=== PATIENT | female | born 1970 | race Caucasian/White ===

== ENCOUNTER 2017-06-18 05:57 | Observation (INO) | payer OTHER ==
--- NOTE | 2017-05-31 15:49 | GHP ---
[f rep st] PREOP HISTORY AND PHYSICAL DATE OF ADMISSION: 06/18/2017 DATE OF SURGERY: 06/18/2017 at 7:15 a.m. SURGERY TO BE PERFORMED: Total laparoscopic hysterectomy, bilateral salpingectomy. PREOPERATIVE DIAGNOSIS: Menometrorrhagia and symptomatic uterine fibroids. HISTORY OF PRESENT ILLNESS: The patient is a 47-year-old 3 para 2-0-1-2, who has a longstan ding history of very heavy and irregular menstrual cycles. She was diagnosed with a prolactinoma in her early 40s and was treated medically with cabergoline and followed by an accounts receivable executive. Her c ycles were very irregular with the prolactinoma but that has gradually improved. The regularity has improved but the heaviness has worsened over the past several years. Currently she has very heavy cycles, using 2 super plus tampons and a pad at a time for over 3 days, needing to change approximat leonel every hour, and bleeding in between cycles. This cycles her period lasted a total of 13 days. She plans her life around her period. It is effecting all aspects of her life and she is ready for definitive management. She has felt very fatigued and run down, and was diagnosed with anemia, decr eased iron, decreased ferritin. She did have IV iron infusions and felt better but then as soon as she had her period she began to feel run down again. She also has a constant low back pain that wor sens dramatically with her periods. We have been following her uterus with pelvic ultrasounds over the years and she has known uterine fibroids that have now increased in size. Most recent ultrasoun d, April 16, 2017, she had a total uterine volume of 223 mL. Her largest fibroid is in the posterior aspect, which is 8.0 x 6.6 x 7.88 cm. Her larger posterior fibroid abuts the endometrium, felt to be pushing on the endometrial canal in a submucosal orientation, likely causing her irregular heavin g bleeding and the bulk of the uterus is causing her bulk symptoms and her low back pain. She had a subserosal fibroid that is 2 cm and another intramural fibroid that is also approximately 2 cm. He r ovaries are normal, except she had a simple left ovarian cyst. We discussed treatment options inc luding medical management with hormonal control of her periods versus Lupron versus uterine artery e mbolization or alternative methods and surgery. Patient is now ready to have definitive surgery wit h adam hysterectomy. She has had vaginal deliveries and has good room in descensus, so I feel she is a good candidate for a total laparoscopic hysterectomy. The patient was counseled on the risks and b enefits and she desires to keep her ovaries but we will do a bilateral salpingectomy for cancer prev ention and she is in agreement with this. PAST OBSTETRICAL HISTORY: In 1993, she had a spontaneous . In 2001, she had a viable male, vaginal delivery, 7 pounds 6 ounces, without complication. In 2003, she had a viable female, 7 jeannine nds 8 ounces, vaginal delivery without complication. She has completed her childbearing. She has b een on various oral contraceptive pills for contraception with various side effects and they have no t helped her periods in the recent past. PAST MEDICAL HISTORY: Significant for a history of prolactinoma treated medically and dysautonomia or POTS syndrome. She was diagnosed at [facility] and is followed and treated mostly by edison ruvalcaba. PAST SURGICAL HISTORY: In 1995, she had an umbilical hernia repair and an inguinal hernia repair at the same time. Those are her only surgeries. ALLERGIES: She is allergic to penicillin, it gives her a rash, a childhood reaction. GYNECOLOGICAL HISTORY: She had normal menstrual triad, menarche at age 11. Length of cycles is gen erally monthly. They are heavy and lasting anywhere from 5-13 days. She has had no history of abno rmal Paps. Her most recent Pap was in May of 2016, and it was negative. She has had a negative HPV in 2014. SOCIAL HISTORY: She is . She lives by her and her son and her daughter. 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 She denies tobacco, alcohol, or drug use. Does not have regula r exercise, mostly because of extreme fatigue. FAMILY HISTORY: Significant for a father and a brother who passed from heart disease. Grandmother had breast cancer. Grandfather had lymphoma. Another grandfather had colon cancer. Her father als o had diabetes. REVIEW OF SYSTEMS: Only as above, mostly fatigued and menometrorrhagia. SUBJECTIVE: VITAL SIGNS: Today, blood pressure is 102/62. Weight is 147. GENERAL: She is a well -developed, well-nourished white female, in no acute distress. LUNGS: Clear to auscultation bilate rally. HEART: Regular rate and rhythm. No murmurs. ABDOMEN: Soft, nontender, nondistended. Nor mal bowel sounds. PELVIC: Normal external genitalia. Normal parous cervix. Uterus is bulky, enla rged with palpable fibroid toward the posterior side onto her sacrum but is generally mobile and no other masses are palpated. ASSESSMENT AND PLAN: A 47-year-old 3 para 2-0-1-2 with symptomatic uterine fibroids, menome trorrhagia, and bulk symptoms, for definitive management with a total laparoscopic hysterectomy, ritika ateral salpingectomy. The patient was consented for the procedure today. She understands the risks and benefits. The risks including bleeding, infection, damage to organs in terms of bowel, bladder , nerves, blood vessels, ureters. Risk of needing an open procedure, risk of needing additional pro cedures. She understood these risks and benefits and agreed to consent. /[id number]/MODL
[2017-06-18] MEDS ORDERED: ceFAZolin 2 GM/DEXTROSE 100 ML IV ONE (06:00)
[2017-06-18] MEDS ORDERED: LIDOCAINE 1% 2 ML INJ ID PRN (06:22)
[2017-06-18] MEDS ORDERED: LR 1,000 ML IV ONE (06:22)
[2017-06-18] MEDS ORDERED: fentaNYL 100 MCG/2 ML INJ ONE (07:11)
[2017-06-18] MEDS ORDERED: PROPOFOL/EMULSION 500 MG/50 ML BOTTLE IV ONE ×4 (07:11→10:15)
[2017-06-18] MEDS ORDERED: PROPOFOL 200 MG/20 ML VIAL ONE (07:11)
[2017-06-18] MEDS ORDERED: SCOPOLAMINE HYDROBROMIDE 1 MG/3 DAYS PATCH TD ONE (07:13)
--- NOTE | 2017-06-18 07:14 | PDANEPAE ---
ANE History of Present Illness Patient presents for lap hys-salpingectomy ANE Past Medical History - Cardiovascular History Hx Hypertension: No Hx Arrhythmias: No Hx Chest Pain: No Hx Coronary Artery / Peripheral Vascular Disease: No Hx CHF / Valvular Disease: No Hx Palpitations: Yes Cardiovascular History Comment: benign heart palpitations has been worked up by [facility]. bp tends to run low - Pulmonary History Hx COPD: No Hx Asthma/Reactive Airway Disease: No Hx Recent Upper Respiratory Infection: No Hx Oxygen in Use at Home: No Hx Sleep Apnea: No Sleep Apnea Screening Result - Last Documented: Negative - Neurologic History Hx Cerebrovascular Accident: No Hx Seizures: No Hx Dementia: No Neurologic History Comment: nervous system seems like it's a little bit damaged from lyme disease - Endocrine History Hx Diabetes: No Endocrine History Comment: lyme disease - Renal History Hx Renal Disorders: No - Liver History Hx Hepatic Disorders: No - Neurological & Psychiatric Hx Hx Neurological and Psychiatric Disorders: No - Cancer History Hx Cancer: No - Congenital Disorder History Hx Congenital Disorders: No - GI History Hx Gastrointestinal Disorders: No - Other Health History Other Health History: none - Chronic Pain History Chronic Pain: No - Surgical History Prior Surgeries: hernia surgery 1997 ANE Review of Systems - Exercise capacity METS (RN): 4 METS ANE Patient History - Allergies Allergies/Adverse Reactions: Penicillins Allergy (Unknown, Verified 05/24/17 11:29) Unknown Corticosteroids (Glucocorticoids) Allergy (Verified 05/24/17 11:33) Rash - Home Medications Home medications: home medication list seen and reviewed Home Medications: Herbals/Supplements -Info Only 05/24/17 [Last Taken 06/16/17] - NPO status NPO Status: no food or drink >8 hours NPO Since - Liquids (Date): 06/17/17 NPO Since - Liquids (Time): 18:00 NPO Since - Solids (Date): 06/17/17 NPO Since - Solids (Time): 18:00 - Anes Hx Anes Hx: no prior problems - Smoking Hx Smoking Status: Never smoked - Family Anes Hx Family Hx Anesthesia Complications: none ANE Labs/Vital Signs - Vital Signs Blood Pressure: 108/71 Heart Rate: 82 Respiratory Rate: 16 O2 Sat (%): 98 Height: 168.91 cm Weight: 64.864 kg ANE Physical Exam - Airway Neck exam: FROM Mallampati Score: Class 2 Mouth exam: normal dental/mouth exam - Pulmonary Pulmonary: no respiratory distress - Cardiovascular Cardiovascular: regular rate and rhythym - ASA Status ASA Status: II ANE Anesthesia Plan Anesthesia Plan: general endotracheal anesthesia (rba discussed)
--- NOTE | 2017-06-18 07:32 | PDHPUP ---
History & Physical Update H&P update statement: This history and physical update is based on an assessment of the patient which was completed after admission or registration (within 24 hours), but prior to the surgery/procedure.
[2017-06-18] MEDS ORDERED: ROCURONIUM 50 MG/5 ML VIAL ONE ×3 (07:53)
[2017-06-18] MEDS ORDERED: DEXAMETHASONE 4 MG/ML VIAL ONE (07:54)
[2017-06-18] MEDS ORDERED: METOCLOPRAMIDE 10 MG/2 ML VIAL ONE (07:54)
[2017-06-18] MEDS ORDERED: BUPIVACAINE 0.25% 30 ML SDV ONE (08:12)
[2017-06-18] MEDS ORDERED: HYDROmorphONE/DILAUDID 2 MG/ML INJ ONE ×2 (08:25→10:49)
[2017-06-18] MEDS ORDERED: SUGAMMADEX SODIUM 200 MG/2 ML VIAL IVP ONE (09:43)
[2017-06-18] MEDS ORDERED: LR 500 ML IV PRN (10:48)
[2017-06-18] MEDS ORDERED: HYDROmorphONE/DILAUDID 1 MG/ML SYR IVP PRN (10:48)
[2017-06-18] MEDS ORDERED: NALOXONE HCL 0.4 MG/ML INJ IVP PRN (10:48)
[2017-06-18] MEDS ORDERED: HYDROCODONE/APAP 5/325 TAB PO PRN ×2 (10:48→18:49)
[2017-06-18] MEDS ORDERED: PROMETHAZINE HCL 25 MG/ML INJ IVP PRN (10:48)
[2017-06-18] MEDS ORDERED: ONDANSETRON 4 MG/2 ML VIAL IVP PRN (10:48)
[2017-06-18] MEDS ORDERED: fentaNYL 100 MCG/2 ML INJ IVP PRN (10:48)
[2017-06-18] MEDS ORDERED: OXYCODONE/APAP 5/325 TAB PO PRN (10:48)
[2017-06-18] MEDS ORDERED: KETOROLAC 30 MG/1 ML SDV IVP ONE ×2 (11:13→14:45)
--- NOTE | 2017-06-18 11:18 | POSTOPPROG ---
Post Op Note Date of Operation: 06/18/17 Surgeon: Gabriella Casey Rope Silica Machine Operator: Dr. Margarita Osorio Anesthesiologist: Dr. Trey Cazares Anesthesia: GET(General Endotracheal) Pre-op Diagnosis: menomenorrhagia and uterine fibroids Post-op Diagnosis: same Procedure: TLH B salpingectomy Findings: uterus with large fibroids, ovaries and tubes within normal limits Inf/Abcess present in the surg proc area at time of surgery?: No Depth: Organ Space EBL: 100-500 Total fluids administered: 2500 Specimen(s): uterus with cervix and bilateral fallopian tubes
[2017-06-18] MEDS ORDERED: LR 1,000 ML IV SCH (11:30)
--- NOTE | 2017-06-18 12:27 | POSTANESTH ---
Post Anesthetic Evaluation Cardiovascular Status: Normal, Stable Respiratory Status: Normal, Stable Level of Consciousness/Mental Status: Can Participate in Eval Pain Control: Adequate, Prn Tx Ordered Nausea/Vomiting Control: Adequate, Prn Tx Ordered Complications Possibly Related to Anesthesia: None Noted
--- NOTE | 2017-06-18 12:53 | GOP ---
[f rep st] OPERATIVE REPORT DATE OF OPERATION: 06/18/2017 SURGEON: Gabriella Casey MD WHITE SIDEWALL TIRE BUFFER: Margarita Osorio MD. ANESTHESIA: General anesthesia. ANESTHESIOLOGIST: Trey Bird MD. PREOPERATIVE DIAGNOSIS: Menometrorrhagia and symptomatic uterine fibroids. POSTOPERATIVE DIAGNOSIS: Menometrorrhagia and symptomatic uterine fibroids. PROCEDURE PERFORMED: Total laparoscopic hysterectomy, bilateral salpingectomy. FINDINGS: SPECIMENS: Uterus with cervix and bilateral fallopian tubes. ESTIMATED BLOOD LOSS: For the procedure was 150 cc. INDICATIONS: The patient is a 47-year-old 3, para 2-0-1-2, with a longstanding history of v anam heavy and irregular menstrual cycles. She was originally diagnosed with a prolactinoma in her e ki 40s, was treated medically, and the cycles gradually improved. This improved irregularity but the heaviness worsened over past several years. Currently she has various heavy cycles using 2 supe r tampons plus a pad at a time for over 3 days needing to change approximately every hour and bleedi ng in between cycles. This lasts as long as 13 days. She plans her life around her period, and it is affecting all aspects of her life. She feels very fatigued and run down. She was diagnosed with anemia and decreased iron, given IV iron infusions, felt better, but as soon as her period started felt worse again. She also has constant low back pain that worsens dramatically with her periods. On ultrasound in March she had an enlarged uterus. The largest fibroid is in the posterior aspect me asuring 8 x 6.6 x 7.88 cm, and it abuts the endometrium felt to be pushing on the endometrial canal in a submucosal orientation causing the irregular bleeding. We discussed management options includi ng medical management versus uterine artery embolization versus definitive management with a hystere ctomy, and the patient decided to have definitive management. She understood the risks and benefits . The risks including bleeding, infection, damage to the organs, uterus, tubes, ovaries, bowel, jeremy dder, nerves, blood vessels, ureters, risk of needing an open procedure, risk of needing additional procedures. She understood these risks and benefits, agreed to proceed. DESCRIPTION OF PROCEDURE: Procedure performed patient was taken to the operating room to where she was placed under general anesthesia without difficulty. She was prepped and draped in the dorsal li thotomy position, and a West catheter was placed in her bladder. After a WHO time-out was performe d, an open-sided speculum was placed in the vagina, and the single-tooth tenaculum was used to grasp the anterior lip of the cervix. The uterus sounded to 11 cm. The cervix was progressively dilated with Jeffrey dilators to #7. The MOOSE uterine manipulator was placed through the cervical os and the balloon was inflated. The cervical cap was placed around the cervix and the tenaculum was removed. The uterus was manipulated with that manipulator. Attention was then turned to the abdominal portion of procedure. The patient had previously had an umbilical hernia repair with mesh. So we made our midline incision approximately 2 cm superior to h er umbilicus. After injection of local a 5 mm skin incision was placed through that trocar site. U nder direct visualization an atraumatic 5 mm trocar was placed through that incision and pneumoperit oneum was created. The patient was placed in Trendelenburg. After injection with Marcaine, a 5 mm skin incision was placed in the right lower quadrant, and an atraumatic 5 mm trocar was placed throu gh that incision, and a 1 cm incision and trocar was placed through the left lower quadrant. Inspec tion of the pelvis was made. The uterus was enlarged there was an obvious large posterior fibroid a nd other fibroids along the uterine fundus. The fallopian tubes and the ovaries were normal. The r est of the pelvis was normal. The left fallopian tube was grasped at the fimbriated end with an atr aumatic grasper, and the LigaSure was used to dissect along the mesosalpinx along the entire length of the tube, and the tube was excised at the cornual region of the uterus, and the tube was removed through the 10 mm trocar part. The uterus was deflected to the right and the dissection was made al sandra the utero-ovarian ligament, the cardinal ligament, and the broad ligament was dissected in the a nterior-planes, and the bladder flap was created along the vaginal cup. Uterine vessels were also c auterized and cut with the LigaSure without difficulty. Attention was then turned to the right port ion of the uterus where the right fallopian tube was grasped at the fimbriated end and dissected thr ough with the ligature along the mesosalpinx to the cornual region of the uterus and the tube was re moved directly through the 10 mm port. The uterus was deflected to the left and dissection was perf ormed along the utero-ovarian ligament, the broad ligament, the cardinal ligament, and the bladder f lap was connected from the plane that was created on the left side, and visualization was made of th e entire cuff along the cervical margin. A monopolar hook was then introduced and with monopolar ca utery the dissection was performed along the vaginal cup from the anterior to the right to the poste rior aspect. Unfortunately, the MOOSE manipulator was not holding pneumo and the balloon had deflate d, and we were unable to visualize to make the rest of the cuff incision. Therefore the decision wa s made to proceed vaginally where a weighted speculum was placed in the vagina, and a Richard was use d to visualize the vaginal cuff and the cervix was visualized, and with Bovie cautery we extended th e previously-made vaginal cuff incision along the left aspect of her uterus with the Bovie cautery. The tissue was clamped with Fany clamps, and suture ligated with 0 Vicryl until the uterus was fr eed. The cervix was grasped with 2 tenaculum's, and because it was large we had difficulties initia lly removing the uterus from the vaginal cuff. We used the Lucho O retractor. This was introduced to the vagina, and the uterus was placed through the Lucho retractor, and with the help of the Joi xis retractor and carefully using a single-toothed tenaculum to march up through the large uterine f ibroid the uterus was removed vaginally. The Lucho O retractor was removed. A glove with a lap wa s placed through the vaginal opening. The cuff was then grasped with a toothed grasper, and the V l ock was performed with the suture from right to left, and this was performed without difficulty. Th e cuff was closed. Two were put redundantly toward the midline, and the suture and the needle were removed. There were small areas of bleeding on the cuff which were cauterized with ligature. The c uff was copiously irrigated with warm normal saline and good hemostasis was assured. Careful inspec tion was made and both ureters were visualized peristalsing normally along the pelvic brim into the cul-de-sac. The appendix was visualized which seemed to be normal. The liver was normal. All of t he bleeding and irrigation were removed. The fascial closure device was then used. The 10 cm port to close the fascia with 0 Vicryl. All the pneumoperitoneum was allowed to escape, the trocars were removed, and the skin was closed with 4-0 Monocryl. The patient tolerated the procedure well. Spo nge, lap, needle, and instrument counts were correct x2. The patient went to the recovery room in g ood condition. FLUIDS REPLACED: IV fluids were 2500 cc. URINE OUTPUT: 100 cc. /[id number]/MODL
[2017-06-18 16:43] VITALS: RESP 16
[2017-06-18 20:50] VITALS: PULSE 76
[2017-06-18] MEDS ORDERED: IBUPROFEN 200 MG TAB PO SCH (22:00)
[2017-06-18] MEDS: KETOROLAC 30 MG/1 ML SDV IVP SCH (22:15)
[2017-06-19] MEDS ORDERED: KETOROLAC 30 MG/1 ML SDV IVP SCH
[2017-06-19] MEDS: KETOROLAC 30 MG/1 ML SDV IVP SCH (05:34)
[2017-06-19 05:59] VITALS: BP 102/59; TEMP 99.4; O2SAT 92
[2017-06-19 06:12] LABS: HEMATOCRIT 30.5 % (38.0-47.0); HEMOGLOBIN 10.4 g/dL (12.6-16.3)
[2017-06-19] MEDS ORDERED: IBUPROFEN 200 MG TAB PO PRN (10:00)
--- NOTE | 2017-06-19 10:25 | SOAPPROG ---
SOAP Progress Note Assessment/Plan: Assessment: 47 y/o POD #1 s/p TLH B salpingectomy doing well Plan: D/c home today with Rx [facility] and Ibuprofen. Encouraged her to take her liquid iron. Follow-up @ [facility] 2 and 6 weeks. 06/19/17 10:26 Subjective: Pt is doing great post surgery. She has min pain controlled with Toradol/ Ibuprofen. She hasn't required narcotics at all. She has some gas pain but is passing flatus. No n/v, martha reg diet, ambulating and voiding without difficulty. Objective: Vital Signs Temp Pulse Resp BP Pulse Ox 37.4 C 76 16 102/59 L 92 06/19/17 05:58 06/19/17 05:58 06/19/17 05:58 06/19/17 05:58 06/19/17 05:58 Laboratory Results 06/19/17 05:45 06/18/17 06/19/17 06/20/17 05:59 05:59 05:59 Intake Total 3990 Output Total 2200 Balance 1790 - Pending Discharge Pending Discharge Within 24 Hours: Yes Pending Discharge Date: 06/20/17 Pending Discharge Time: 11:00 Physical Exam - Physical Exam General Appearance: WD/WN, alert, no apparent distress Neck: non-tender, full range of motion, supple Respiratory: chest non-tender, lungs clear, normal breath sounds Cardiac/Chest: regular rate, rhythm Abdomen: normal bowel sounds, other (incisions c/d/i) Extremities: swelling (no), Coral's sign (neg) ICD10 Worksheet Patient Problems: Problems Problem Status Onset Status post laparoscopic hysterectomy Acute
[2017-06-19] MEDS ORDERED: IBUPROFEN 200 MG TAB PO SCH (11:15)
== END 2017-06-19 11:30 | disposition home or self-care (01) ==
LOC: FSGY 05:57 → F3E 11:13 → FOB 12:55
PROVIDERS: ADMIT Obstetrics & Gynecology; ATTEND Obstetrics & Gynecology
PROC: 0UT9FZZ Resection of Uterus, Via Natural or Artificial Opening With Percutaneous Endoscopic Assistance (ICD-10-PCS; principal; 2017-06-18 07:15)
PROC: 0UT74ZZ Resection of Bilateral Fallopian Tubes, Percutaneous Endoscopic Approach (ICD-10-PCS; principal; 2017-06-18 07:15)
PROC: 0UTC4ZZ Resection of Cervix, Percutaneous Endoscopic Approach (ICD-10-PCS; principal; 2017-06-18 07:15)
CPT/HCPCS: 58554; G0378; J0690; J1100; J1170; J1885; J2704; J2765; J3010

== ENCOUNTER → 2017-07-28 | Outpatient (CLI) | payer OTHER | LOC: CIMAGING 08:27 | PROVIDERS: ATTEND Internal Medicine | DX: R07.9 Chest pain, unspecified (principal); R00.2 Palpitations; R94.31 Abnormal electrocardiogram [ECG] [EKG] | CPT/HCPCS: 71020-PO ==

== ENCOUNTER → 2017-08-08 | Outpatient (CLI) | payer OTHER ==
--- NOTE | 2017-08-09 00:14 | CPR ---
[f rep st] NONINVASIVE CARDIAC PROCEDURE REPORT EXERCISE TREADMILL TEST OF EXERCISE TREADMILL MPI STUDY INDICATION FOR STRESS TESTING: Known family history of sudden cardiac , episodes of mild chest pressure. PRE: After obtaining informed consent, the patient was placed on electrocardiogram. Initial EKG freddy wing sinus rhythm, normal axis, no ST or T-wave abnormalities suggestive of ischemia. Initial blood pressure 108/72, saturation 98% on room air. The patient denies any chest pain, shortness of breath, or symptoms suggesting ischemia. STRESS: The patient was placed on exercise treadmill, and following standard Osmel protocol, the johan magana findings: 1. The patient exercised for 9 minutes. 2. 10.3 METs. 3. Heart rate obtained was 176 beats per minute, which was 102% of MPHR. 4. The patient had no chest pain or symptoms suggesting ischemia during stress testing. 5. No ST shift at peak exercise, suggestive of ischemia. 6. SpO2 greater than 90% throughout testing. 7. No arrhythmias noted during rest stress or recovery. 8. Blood pressure variation at rest 108/72, peak 154/70. 9. Testing was stopped due to maximum effort. 10. Tang treadmill score of 9, placing the patient at low cardiovascular risk. RECOVERY: The patient recovered for 5 minutes, heart rate returned to baseline, final blood pressure was 114/72, no arrhythmias noted. The patient remained asymptomatic of symptoms suggestive of ische cyndi. IMPRESSION: A 47-year-old female undergoing exercise treadmill testing, evaluation for possible isch emia, with family history of sudden cardiac , and episodes of chest pressure, asymptomatic durin g stress testing, no ST shifts suggestive of ischemia, Tang treadmill score of 9, placing her at low cardiovascular risk. Her vital signs are stable, she has been transferred to Nuclear Medicine for ststress MPI imaging at this time. /[id number]/MODL
== END ==
LOC: FIMAGING 12:12
PROVIDERS: ATTEND Internal Medicine
DX: R07.9 Chest pain, unspecified (principal); R00.2 Palpitations; R94.31 Abnormal electrocardiogram [ECG] [EKG]
CPT/HCPCS: 78452; 93017; A9500